=== PATIENT | female | born 1995 | race African-American/Black ===

== ENCOUNTER 2017-06-04 16:51 | Emergency (ER) | payer SELFPAY ==
[2017-06-04 16:59] VITALS: BP 144/87; BMI 46.5
--- NOTE | 2017-06-04 18:17 | RAD ---
Examination: Chest, PA and lateral views History: Chest pain Comparison reference: None Findings: Normal heart size with clear lungs and pleural spaces. Impression: Chest within normal limits. Reported By:
[2017-06-04 18:19] LABS: BASOPHILS # (AUTO) 0.1 X10^3/uL (0.0-0.1); EOSINOPHILS # (AUTO) 0.3 x10^3/uL (0.0-0.2); EOSINOPHILS % (AUTO) 3.9 % (0.9-2.9); HEMATOCRIT 36.7 % (36.0-47.0); HEMOGLOBIN 12.4 g/dL (12.0-16.0); LYMPHOCYTES # (AUTO) 3.1 X10^3/uL (1.3-2.9); LYMPHOCYTES % (AUTO) 39.4 % (21.0-51.0); MEAN CORPUSCULAR HEMOGLOBIN 28.8 pg (27.0-34.0); MEAN CORPUSCULAR HGB CONC 33.8 g/dL (33.0-35.0); MEAN CORPUSCULAR VOLUME 85.2 fL (80.0-100.0); MEAN PLATELET VOLUME 8.4 fL (7.4-11.0); MONOCYTES # (AUTO) 0.6 x10^3/uL (0.3-0.8); MONOCYTES % (AUTO) 7.7 % (0.0-13.0); NEUTROPHILS # (AUTO) 3.8 x10^3/uL (2.2-4.8); PLATELET COUNT 275 X10^3/uL (150.0-450.0); RED BLOOD COUNT 4.31 X10^6/uL (3.5-5.4); WHITE BLOOD COUNT 7.9 X10^3/uL (3.6-10.0)
--- NOTE | 2017-06-04 18:29 | DR.CP ---
HPI - Time Seen Time seen: 18:20 - PCP Primary Care Physician: NFD - Complaint Chief Complaint Doctor Comments: Patient states that she has asthma and bronchitis. She usually gets this yearly wants to prevent the attack. She uses albuterol but is out. She also complains of left lower leg pain of one days duration. Denies trauma Chief Complaint:: PT STATES " I HAVE BEEN HAVING TIGHT CHESTPAINS THAT STARTED 2 DAYS AGO AND I THINKS ITS MY ASTHMA AND BRONCHITIS AND LOWER BACK OF LEG PAIN FOR A WEEK" - Source History Provided: Patient - Mode of Arrival Mode of Arrival: Ambulatory - Timing Onset of Chief Complaint: 06/01/17 PMH - PMH Past Medical History: Yes Past Medical History: Asthma Past Medical History Comment: BRONCHITIS Past Surgical History: No - Family History History of Family Medical Conditions: No - Social History Does patient currently use any type of tobacco product: No Have you used tobacco products in the last 12 months: No Type of Tobacco Use: None Does any household member use tobacco: No Do you use any recreational Drugs:: No Lives With: Family Lives Where: Home - infectious screening In the last 2 months have you had wt loss of >10#?: NO Have you had fever, night sweats or hemotysis?: No Have you traveled outside the country in the last 6 months?: No Isolation: Standard ROS - Review of Systems Eyes: No Symptoms Reported ENTM: No Symptoms Reported Respiratoy: No Symptoms Reported Cardiovascular: No Symptoms Reported Gastrointestinal/Abdominal: No Symptoms Reported Genitourinary: No Symptoms Reported Neurological: No Symptoms Reported Musculoskeletal: No Symptoms Reported Integumentary: No Symptoms Reported Hematologic/Lymphatic: No Symptoms Reported Endocrine: No Symptoms Reported Psychiatric: No Symptoms Reported All Other Systems: Reviewed and Negative PE - Vitals Vitals: Temperature 96.7 F Pulse Rate 80 Respiratory Rate 22 Blood Pressure 144/87 O2 Sat by Pulse Oximetry 97 - General General Appearance: Alert, In No Apparent Distress - Head Head Exam: Normal Inspection, Atraumatic - Eyes Eye exam: Normal Appearance, PERRL, EOMI - ENT ENT Exam: Normal Exam - Chest Chest Inspection: Normal Inspection, Symmetric Chest Wall Rise - Respiratory Respiratory Exam: Normal Lung Sounds Bilat Respiratory Exam: Bilateral Clear to Auscultation - Cardiovascular Cardiovascular Exam: Regular Rate, Normal Rhythm Pulse: Normal - Abdominal Exam Abdominal Exam: Normal Inspection, Normal Bowel Sounds Abdominal Tenderness: negative: RUQ, RLQ, LUQ, LLQ, Epigastrium, Suprapubic, Diffuse, Mild, Moderate, Severe, Other - Extremities Extremities Exam: Normal Inspection, Full ROM - Back Back Exam: Normal Inspection - Neurologic Neurological Exam: Alert, Oriented X3, CN II-XII Intact - Psychiatric Psychiatric Exam: Normal Affect - Skin Skin Exam: Warm, Dry, Intact ROR - Labs Reviewed Laboratory Results Reviewed?: Yes (strep negative) Result Diagrams: 06/04/17 17:56 Laboratory: WBC 7.9 X10^3/uL (3.6-10.0) 06/04/17 17:56 RBC 4.31 X10^6/uL (3.5-5.4) 06/04/17 17:56 Hgb 12.4 g/dL (12.0-16.0) 06/04/17 17:56 Hct 36.7 % (36.0-47.0) 06/04/17 17:56 MCV 85.2 fL (80.0-100.0) 06/04/17 17:56 MCH 28.8 pg (27.0-34.0) 06/04/17 17:56 MCHC 33.8 g/dL (33.0-35.0) 06/04/17 17:56 RDW 15.0 % (11.6-16.5) 06/04/17 17:56 Plt Count 275 X10^3/uL (150.0-450.0) 06/04/17 17:56 MPV 8.4 fL (7.4-11.0) 06/04/17 17:56 Neut % 48.0 % (42.0-75.0) 06/04/17 17:56 Lymph % 39.4 % (21.0-51.0) 06/04/17 17:56 [place] % 7.7 % (0.0-13.0) 06/04/17 17:56 Eos % 3.9 % (0.9-2.9) H 06/04/17 17:56 Baso % 1.0 % (0.2-1.0) 06/04/17 17:56 Neut # 3.8 x10^3/uL (2.2-4.8) 06/04/17 17:56 Lymph # 3.1 X10^3/uL (1.3-2.9) H 06/04/17 17:56 [place] # 0.6 x10^3/uL (0.3-0.8) 06/04/17 17:56 Eos # 0.3 x10^3/uL (0.0-0.2) H 06/04/17 17:56 Baso # 0.1 X10^3/uL (0.0-0.1) 06/04/17 17:56 Absolute Nucleated RBC 0.1 /100WBC 06/04/17 17:56 - XRAY XRAY Interpreted by: Radiologist (Chest: within normal limits) - Diagnosis Discharge Problem: Asthmatic bronchitis Qualifiers: Asthma severity: mild Asthma persistence: intermittent Asthma complication type : uncomplicated Qualified Code(s): J45.20 - Mild intermittent asthma, uncomplicated Leg pain Qualifiers: Laterality: left Qualified Code(s): M79.605 - Pain in left leg - Discharge Plan Condition: Stable - Follow ups/Referrals Follow ups/Referrals: NFD,None [Primary Care Provider] - 3 days - Instructions
== END 2017-06-04 18:35 | disposition home or self-care (01) ==
LOC: ER 17:07
DX: J45.20 Mild intermittent asthma, uncomplicated (principal); M79.605 Pain in left leg
CPT/HCPCS: 36415; 71020; 85025; 99282